=== PATIENT | female | born 1965 | race Caucasian/White ===

== ENCOUNTER 2018-12-03 05:37 | Inpatient (IN) | payer BC ==
[2018-12-03] MEDS: LACTATED RINGER'S 1,000 ML IV (06:23)
[2018-12-03] MEDS: LACTATED RINGER'S 1,000 ML IV* (06:24)
[2018-12-03] MEDS: CEFAZOLIN 2 GM/50 ML (PMX) 50 ML IVPB (06:24)
[2018-12-03] MEDS ORDERED: FENTAnyl 50 MCG/ML VIAL ×2 (06:55→07:22)
[2018-12-03] MEDS ORDERED: ROCURONIUM 50 MG INJ ×2 (06:55→08:57)
[2018-12-03] MEDS ORDERED: MIDAZOLAM 1 MG/ML 2 ML INJ (06:55)
[2018-12-03] MEDS ORDERED: PROPOFOL 20 ML (06:55)
[2018-12-03] MEDS ORDERED: CEFAZOLIN 1 GM INJ (07:00)
[2018-12-03] MEDS ORDERED: HETASTARCH 6% NACL 500 ML BAG (07:00)
[2018-12-03] MEDS ORDERED: EPHEDrine SULFATE 50 MG/5 ML SYG (07:00)
[2018-12-03] MEDS ORDERED: PHENYLephrine (100 MCG/ML) 10ML SYG (07:00)
[2018-12-03] MEDS ORDERED: SEVOFLURANE 15 MIN (07:00)
[2018-12-03 07:09] LABS: ADD UMIC YES; UR ASCORBIC ACID NEGATIVE (NEGATIVE); UR BACTERIA MODERATE /HPF (NONE SEEN); UR BILIRUBIN (Dip) NEGATIVE (NEGATIVE); UR BLOOD (Dip) 2+ mg/dL (NEGATIVE); UR CLARITY CLEAR (CLEAR); UR COLOR STRAW (YELLOW); UR GLUCOSE (Dip) NEGATIVE (NEGATIVE); UR KETONES (Dip) NEGATIVE (NEGATIVE); UR LEUKOCYTE ESTERASE (Dip) 3+ Leu/ul (NEGATIVE); UR NITRITE (Dip) NEGATIVE (NEGATIVE); UR RBC 6 /HPF (0-5); UR RENAL EPITHELIAL CELL FEW /HPF (NONE SEEN); UR SPECIFIC GRAVITY (Dip) 1.006 (1.003-1.030); UR SQUAMOUS EPITHELIAL CELL FEW /HPF (FEW); UR TOTAL PROTEIN (Dip) NEGATIVE (NEGATIVE); UR UROBILINOGEN (Dip) NEGATIVE (NEGATIVE); UR WBC 25 /HPF (0-5)
[2018-12-03] MEDS ORDERED: LABETALOL HCL 20MG INJ (07:24)
[2018-12-03] MEDS: BUPIVACAINE 0.25% (MPF) 30 ML INJ (07:41)
[2018-12-03] MEDS: POLYMYXIN/BACITRACIN 1L IRRIG (07:41)
[2018-12-03] MEDS: GELATIN SIZE 100 SPONGE (08:16)
[2018-12-03] MEDS: THROMBIN (BOVINE) 5,000 UNIT VIAL TP (08:16)
[2018-12-03] MEDS ORDERED: ONDANSETRON 4 MG INJ (08:30)
[2018-12-03] MEDS ORDERED: METOCLOPRAMIDE 10 MG INJ (08:31)
[2018-12-03] MEDS ORDERED: DEXAMETHASONE 4 MG/ML 5 ML INJ (08:31)
[2018-12-03] MEDS ORDERED: SUGAMMADEX SODIUM 200 MG/2 ML VIAL IV (08:57)
[2018-12-03] MEDS ORDERED: HYDROmorphONE 1 MG/5 ML IV SYRINGE IV ×2 (09:00)
[2018-12-03] MEDS ORDERED: MEPERIDINE 25 MG INJ IV (09:00)
[2018-12-03] MEDS ORDERED: LABETALOL HCL 20MG INJ IV (09:00)
[2018-12-03] MEDS ORDERED: METOCLOPRAMIDE 10 MG INJ IV (09:00)
[2018-12-03] MEDS ORDERED: hydrALAzine 20 MG INJ IV (09:00)
[2018-12-03] MEDS ORDERED: EPHEDrine SULFATE 50 MG/5 ML SYG IV (09:00)
[2018-12-03] MEDS ORDERED: FENTAnyl 50 MCG/ML VIAL IV (09:00)
[2018-12-03] MEDS: HYDROmorphONE 1 MG/5 ML IV SYRINGE IV (09:47)
[2018-12-03] MEDS: ONDANSETRON 4 MG INJ IV (09:48)
[2018-12-03] MEDS: DIPHENHYDRAMINE 50 MG INJ IV (09:54)
[2018-12-03] MEDS ORDERED: CEPASTAT LOZENGE MT (10:00)
[2018-12-03] MEDS ORDERED: DIPHENHYDRAMINE 50 MG CAP PO (10:00)
[2018-12-03] MEDS ORDERED: ZOLPIDEM 5 MG TAB PO (10:00)
[2018-12-03] MEDS ORDERED: BETHANECHOL 25 MG TAB PO (10:00)
[2018-12-03] MEDS ORDERED: DIAZEPAM 5 MG/ML SYG IM (10:00)
[2018-12-03] MEDS ORDERED: NACL 0.9% 3 ML SYG IV (10:00)
[2018-12-03] MEDS ORDERED: NALOXONE (0.4 MG/ML) INJ IV (10:00)
[2018-12-03] MEDS ORDERED: ONDANSETRON 4 MG INJ IV (10:00)
[2018-12-03] MEDS ORDERED: ACETAMINOPHEN 325 MG TAB PO (10:00)
[2018-12-03] MEDS ORDERED: TRIMETHOBENZAMIDE 100 MG/ML VIAL IM (10:00)
[2018-12-03] MEDS ORDERED: PROCHLORPERAZINE 10 MG TAB PO (10:00)
[2018-12-03] MEDS ORDERED: HYDROmorphONE 0.2 MG/ML PCA (10:01)
[2018-12-03] MEDS: FENTAnyl 50 MCG/ML VIAL IV ×2 (10:03→10:16)
[2018-12-03] MEDS: HYDROmorphONE 0.2 MG/ML PCA IV (10:35)
[2018-12-03] MEDS: DEXTROSE 5%-0.45% NACL 1,000 ML IV ×3 (12:21→23:24)
[2018-12-03] MEDS: CEFAZOLIN 1 GM/50 ML (PMX) 50 ML IVPB ×3 (12:29→23:24)
[2018-12-03] MEDS: carBAMAZepine CHEW 100 MG CHEW PO (12:30)
[2018-12-03] MEDS: RANITIDINE 150 MG TAB PO (20:36)
[2018-12-03] MEDS: TEGRETOL 200 MG PO ×2 (20:39→20:49)
[2018-12-03] MEDS ORDERED: carBAMAZepine CHEW 100 MG CHEW PO (21:00)
[2018-12-04 05:10] LABS: HEMOGLOBIN 10.2 g/dl (12.0-16.0)
[2018-12-04] MEDS: CEFAZOLIN 1 GM/50 ML (PMX) 50 ML IVPB (05:11)
[2018-12-04 05:41] LABS: ANION GAP 4 (5-13); BLOOD UREA NITROGEN 7 mg/dl (7-20); CALCIUM 8.3 mg/dl (8.4-10.2); CARBON DIOXIDE 29 mmol/L (21-31); CHLORIDE 100 mmol/L (97-110); CREATININE 0.54 mg/dl (0.44-1.00); Estimated GFR > 60 mL/min (>60); GLUCOSE 114 mg/dl (70-220); POTASSIUM 3.9 mmol/L (3.5-5.1); SODIUM 133 mmol/L (135-144)
[2018-12-04] MEDS: DEXTROSE 5%-0.45% NACL 1,000 ML IV (05:58)
[2018-12-04] MEDS: SYNTHROID 100 MCG PO (06:23)
[2018-12-04] MEDS: TEGRETOL 200 MG PO (06:27)
[2018-12-04] MEDS ORDERED: LEVOTHYROXINE 100 MCG TAB PO (07:00)
[2018-12-04] MEDS: LACTATED RINGER'S 1,000 ML IV* (07:00)
[2018-12-04] MEDS: RANITIDINE 150 MG TAB PO ×2 (08:27→20:58)
[2018-12-04] MEDS: FERROUS SULFATE (EC) 325 MG TAB PO ×3 (08:28→20:57)
[2018-12-04] MEDS: DOCUSATE SODIUM 100 MG CAP PO ×2 (08:28→20:58)
[2018-12-04] MEDS: BETHANECHOL 25 MG TAB PO (08:28)
[2018-12-04] MEDS: ASCORBIC ACID 500 MG TAB PO ×2 (08:28→20:56)
[2018-12-04 09:24] LABS: ADD UMIC YES; UR ASCORBIC ACID NEGATIVE (NEGATIVE); UR BACTERIA FEW /HPF (NONE SEEN); UR BILIRUBIN (Dip) NEGATIVE (NEGATIVE); UR BLOOD (Dip) 2+ mg/dL (NEGATIVE); UR CLARITY SLIGHTLY CLOUDY (CLEAR); UR COLOR YELLOW (YELLOW); UR GLUCOSE (Dip) NEGATIVE (NEGATIVE); UR KETONES (Dip) NEGATIVE (NEGATIVE); UR LEUKOCYTE ESTERASE (Dip) NEGATIVE Leu/ul (NEGATIVE); UR MUCUS FEW /HPF (NONE SEEN); UR NITRITE (Dip) NEGATIVE (NEGATIVE); UR RBC 8 /HPF (0-5); UR SPECIFIC GRAVITY (Dip) 1.025 (1.003-1.030); UR TOTAL PROTEIN (Dip) NEGATIVE (NEGATIVE); UR UROBILINOGEN (Dip) NEGATIVE (NEGATIVE); UR WBC 5 /HPF (0-5)
[2018-12-04] MEDS: HYDROCODONE/APAP (5/325) TAB PO ×3 (10:38→20:59)
[2018-12-04] MEDS: DIAZEPAM 5 MG TAB PO ×3 (11:53→16:37)
[2018-12-04] MEDS: CARBAMAZEPINE 200 MG TAB PO ×2 (13:00→20:57)
[2018-12-05] MEDS ORDERED: LEVOTHYROXINE 100 MCG TAB PO (06:00)
[2018-12-05] MEDS: SYNTHROID 100 MCG PO (06:09)
[2018-12-05] MEDS: CARBAMAZEPINE 200 MG TAB PO ×2 (06:10→08:34)
[2018-12-05] MEDS: AL HYDROX/MG HYDROX/SIMETH 30 ML CUP PO (06:16)
[2018-12-05] MEDS: LACTATED RINGER'S 1,000 ML IV* (07:00)
[2018-12-05] MEDS: HYDROCODONE/APAP (5/325) TAB PO ×2 (08:32→11:17)
[2018-12-05] MEDS: FERROUS SULFATE (EC) 325 MG TAB PO (08:33)
[2018-12-05] MEDS: DOCUSATE SODIUM 100 MG CAP PO (08:33)
[2018-12-05] MEDS: ASCORBIC ACID 500 MG TAB PO (08:33)
[2018-12-05] MEDS: RANITIDINE 150 MG TAB PO (08:35)
== END 2018-12-05 12:17 | disposition home or self-care (01) | DRG 520 ==
LOC: REC 05:37 → MS1 11:14
PROC: 01NB0ZZ Release Lumbar Nerve, Open Approach (ICD-10-PCS; principal; 2018-12-03 07:00)
PROC: 0SB20ZZ Excision of Lumbar Vertebral Disc, Open Approach (ICD-10-PCS; 2018-12-03 07:00)
PROC: 4A11X4G Monitoring of Peripheral Nervous Electrical Activity, Intraoperative, External Approach (ICD-10-PCS; 2018-12-03 07:00)
DX: M48.062 Spinal stenosis, lumbar region with neurogenic claudication (principal); I10 Essential (primary) hypertension; E03.9 Hypothyroidism, unspecified; G40.909 Epilepsy, unspecified, not intractable, without status epilepticus; F41.9 Anxiety disorder, unspecified; D64.9 Anemia, unspecified; M51.16 Intervertebral disc disorders with radiculopathy, lumbar region; M43.16 Spondylolisthesis, lumbar region
CPT/HCPCS: 72020; 80048; 81001; 85014; 85018; 86850; 86900; 86901; 86920; 87086; 88304; 88311; 97116; 97162; 97530